=== PATIENT | female | born 1965 | race Hispanic/Latino ===

== ENCOUNTER 2021-04-25 17:42 | Emergency (ER) | payer OTHER, MEDICAID, SELFPAY ==
[2021-04-25 17:51] VITALS: BP 142/83; PULSE 90; RESP 18; TEMP 36.4; O2SAT 99
--- NOTE | 2021-04-25 20:18 | ED_ITS ---
HPI - Skin/Abscess/Foreign Bdy General Chief complaint: Skin/Abscess/Foreign Body Stated complaint: Opening In Incision Time Seen by Provider: 04/25/21 19:46 Source: patient Mode of arrival: Wheelchair Limitations: no limitations History of Present Illness HPI narrative: Patient is a 56-year-old female history of diabetes and recent right foot gangrene in November of 2020. 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 She wound complications requiring a wound VAC. She now has a home healthcare nurse checking on her wound and she still is followed by wound care in [place]. 5 days ago she noticed increasing drainage from a different site of her incision is. Today it was more bloody and fussy. It is an extremely small area. She has no fever chills or redness. She continues to have an open healing wound at the incision site at a different area. Home healthcare nurse instructed her to come to the ER for further evaluation of possible infection. complaint: lesion Onset (ago): day(s) Location: [facility] Related Data Allergies Allergy/AdvReac Type Severity Reaction Status Date / Time insulin glargine Allergy Unknown Verified 04/25/21 17:56 [From Lantus U-100 Insulin] insulin regular Allergy Unknown Verified 04/25/21 17:56 metformin Allergy Unknown Verified 04/25/21 17:56 pioglitazone [From Actos] Allergy Unknown Verified 04/25/21 17:56 Review of Systems Review of Systems Narrative: GENERAL: Denies chills,fever HEENT: Denies throat pain RESPIRATORY: Denies dyspnea, cough, wheezing CARDIOVASCULAR: Denies chest pain, palpitations GASTROINTESTINAL: Denies nausea, vomiting MUSCULOSKELETAL: Denies extremity pain, injury SKIN: See HPI NEUROLOGIC: Denies weakness, dizziness, headache, numbness 8 point review of systems is negative except for those stated above and HPI Patient History Medical History Below knee amputation IDDM (insulin dependent diabetes mellitus) (~11/2020) Social History Smoking Status: Never smoker Smoking Status: Never smoker alcohol intake frequency: 0-2 drinks per day Substance Use Type: does not use Exam Initial Vital Signs Initial Vital Signs: Vital Signs Temperature 97.5 F L 04/25/21 17:51 Pulse Rate 90 04/25/21 17:51 Respiratory Rate 18 04/25/21 17:51 Blood Pressure 142/83 H 04/25/21 17:51 Pulse Oximetry 99 04/25/21 17:51 GENERAL: Alert well-appearing 48-year-old female CARDIOVASCULAR: peripheral pulses in tact, cap refill <2 sec RESPIRATORY: No respiratory distress, speaks in full sentences without difficulty EXTREMITIES: Normal range of motion, no clubbing or edema. Neurovascularly intact NEUROLOGICAL: Cranial nerves II through XII grossly intact. SKIN: Open wound at amputation incision site. Large 6 cm x 4 cm open wound appears to be healing which she says is chronic. To the medial side there is a 0.1 cm x 0.3 cm small amount of oozing there is no gap. No erythema no streaking, no fluctuation no tenderness Course Orders Ordered: ED Orders 04/25/21 20:58 Wound Culture and Gram Stain Stat Vital Signs Vital signs: Vital Signs - 8 hr 04/25/21 17:51 04/25/21 20:57 Temperature 97.5 F L Pulse Rate 90 85 Respiratory Rate 18 16 Blood Pressure 142/83 H 153/74 H Pulse Oximetry 99 97 MDM - Skin/Abscess/Foreign Bdy MDM Narrative Medical decision making narrative: At this time do not think that this is infected. She has no erythema induration streaking or fever. Culture is taken. It does not even seem to be a dehiscence. She has follow-up with an actual wound care provider next week. I discussed with both patient and her daughter regards to monitoring it and returning if needed. At this time I do not think antibiotics are indicated. Discharge Plan Departure Patient Disposition: Home Clinical Impression: Postoperative external wound disruption Instructions: DI for Wound Dehiscence Activity Restrictions/Additional Instructions: *You have been diagnosed with possible wound dehiscence *What to do: At this time I do not think that you have an infection in your incision site. Your large wound appears to be healing well. Please monitor and follow-up with wound care as previously scheduled *Continue to take medications as directed *Follow up with your primary care provider in 2-3 days *Return to ER if you should have increasing redness, increasing opening of the n ew site, fever chills swelling increased pain or any new, worsening or concerning symptoms Referrals: Magno Hua MD [Primary Care Provider] -
[2021-04-25 20:57] VITALS: BP 153/74; PULSE 85; RESP 16; O2SAT 97
== END 2021-04-25 20:58 | disposition home or self-care (01) ==
PROVIDERS: Emergency Provider Emergency Medicine; PCP Internal Medicine
DX: T81.31XA Disruption of external operation (surgical) wound, not elsewhere classified, initial encounter (principal)
CPT/HCPCS: 87070; 87075; 87077; 87147; 87205; 99281; 99282